=== PATIENT | male | born 1970 | race Caucasian/White ===

== ENCOUNTER 2017-01-10 00:26 | Emergency (ER) | payer MEDICAID ==
[~2017-01-10] VITALS: Ht 162.6 cm; Wt 86.9 kg
[2017-01-10 00:27] VITALS: BP 153/95
== END 2017-01-10 01:03 | disposition home or self-care (01) ==
LOC: ED 00:56
DX: G89.29 Other chronic pain (principal); R10.84 Generalized abdominal pain; J45.909 Unspecified asthma, uncomplicated
CPT/HCPCS: 99283

== ENCOUNTER 2017-01-12 00:26 | Emergency (ER) | payer MEDICAID ==
[~2017-01-12] VITALS: Ht 165.1 cm; Wt 86.0 kg
[2017-01-12 01:36] LABS: HEMATOCRIT 39.9 % (39.2-51.8); HEMOGLOBIN 13.8 g/dL (13.7-18.0)
[2017-01-12 01:48] LABS: ASPARTATE AMINO TRANSFERASE 27 U/L (15-37); BLOOD UREA NITROGEN 18 mg/dL (7-18)
[2017-01-12 02:31] VITALS: BP 148/68
== END 2017-01-12 02:33 | disposition home or self-care (01) ==
LOC: ED 00:41
DX: R55 Syncope and collapse (principal); J45.909 Unspecified asthma, uncomplicated; Z59.0 Homelessness
CPT/HCPCS: 36415; 80053; 83605; 85025; 93005; 99285

== ENCOUNTER 2017-11-06 02:20 | Emergency (ER) | payer MEDICAID ==
[~2017-11-06] VITALS: Ht 165.1 cm; Wt 73.4 kg
[2017-11-06] MEDS ORDERED: LIDOCAINE 2%, 20ML SQ ONE (03:00)
[2017-11-06 03:19] LABS: BASOPHILS # (AUTO) 0.04 x10^3/uL (0-0.1); BASOPHILS % (AUTO) 0 % (0-1); EOSINOPHILS # (AUTO) 0.02 x10^3/uL (0-0.4); EOSINOPHILS % (AUTO) 0 % (1-7); LYMPHOCYTES % (AUTO) 15 % (22-44); MD NO; MEAN CORPUSCULAR HEMOGLOBIN 29.9 pg (27.5-34.5); MEAN CORPUSCULAR HGB CONC 34.7 g/dL (33.2-36.2); MEAN CORPUSCULAR VOLUME 86.2 fL (81-97); MEAN PLATELET VOLUME 8.4 fL (7.4-10.4); MONOCYTES # (AUTO) 0.34 x10^3/uL (0.2-0.8); MONOCYTES % (AUTO) 4 % (2-9); NEUTROPHILS % (AUTO) 81 % (42-75); PLATELET COUNT 217 x10^3/uL (130-400); RED BLOOD COUNT 4.79 x10^6/uL (4.38-5.82); RED CELL DISTRIBUTION WIDTH 12.7 % (9.4-14.8)
[2017-11-06] MEDS ORDERED: LIDOCAINE-MPF 1%, 2ML ONE (03:24)
[2017-11-06 03:28] LABS: ANION GAP 10 mmol/L (5-15); CALCIUM 8.6 mg/dL (8.5-10.1); CHLORIDE 109 mmol/L (98-107)
[2017-11-06 03:32] LABS: ALANINE AMINOTRANSFERASE 51 U/L (12-78); ALKALINE PHOSPHATASE 96 U/L (45-117); BILIRUBIN,TOTAL 2.8 mg/dL (0.2-1.0); CREATININE 1.11 mg/dL (0.7-1.3)
[2017-11-06 03:33] LABS: ACETAMINOPHEN < 2 mcg/mL (10-30); SALICYLATE LEVEL < 1.7 mg/dL (2.8-20.0)
[2017-11-06 09:42] LABS: AMPHETAMINE SCREEN, URINE Positive (Negative); BARBITURATE SCREEN, URINE Negative (Negative); BENZODIAZEPINE SCREEN, URINE Negative (Negative); CANNABINOID SCREEN, URINE Negative (Negative); COCAINE SCREEN, URINE Negative (Negative); METHADONE SCREEN, URINE Negative (Negative); OPIATE SCREEN, URINE Negative (Negative)
[2017-11-06] MEDS ORDERED: POLYETHYLENE GLYCOL 17 GM PACKET PO PRN (11:30)
[2017-11-06] MEDS ORDERED: LORazepam 0.5MG TABLET PO PRN (11:30)
[2017-11-06 11:57] VITALS: BP 116/75
[2017-11-06 12:36] LABS: FREE T4 (FREE THYROXINE) 1.25 ng/dL (0.76-1.46); THYROID STIMULATING HORMONE 1.05 mIU/L (0.358-3.740)
[2017-11-07] MEDS ORDERED: SENNA/DOCUSATE TABLET PO SCH (09:00)
== END 2017-11-06 14:19 ==
LOC: ED 04:51 → UNDOADMOB 09:37 → EDIP 09:37 → ED 14:19
DX: S01.01XA Laceration without foreign body of scalp, initial encounter (principal); F33.9 Major depressive disorder, recurrent, unspecified; R45.851 Suicidal ideations; J45.909 Unspecified asthma, uncomplicated; Z79.899 Other long term (current) drug therapy; X58.XXXA Exposure to other specified factors, initial encounter; Y93.89 Activity, other specified; Y92.89 Other specified places as the place of occurrence of the external cause; Y99.8 Other external cause status
CPT/HCPCS: 12031; 36415; 76700; 80053; 80307; 80329; 84439; 84443; 85025; 99285; G0480

== ENCOUNTER 2018-07-30 01:56 | Emergency (ER) | payer MEDICAID ==
[~2018-07-30] VITALS: Ht 165.1 cm; Wt 68.0 kg
[2018-07-30 01:58] VITALS: BP 131/85
--- NOTE | 2018-07-30 02:00 | NUR ---
TRIAGE NOTE: cracked skin to hands and feet x 1 month
--- NOTE | 2018-07-30 02:05 | NUR ---
Pt also states that he has lice and is not seeking treatment for that.
--- NOTE | 2018-07-30 02:56 | NUR ---
Patient/Caregiver given discharge instructions and they have confirmed that they understand the instructions. Patient ambulatory with steady gait.
== END 2018-07-30 02:57 | disposition home or self-care (01) ==
LOC: ED 02:38
DX: B85.1 Pediculosis due to Pediculus humanus corporis (principal); L85.3 Xerosis cutis
CPT/HCPCS: 99283

== ENCOUNTER 2019-02-14 15:25 | Emergency (ER) | payer MEDICAID ==
[~2019-02-14] VITALS: Ht 165.1 cm; Wt 74.1 kg
[2019-02-14 15:27] VITALS: BP 132/94
--- NOTE | 2019-02-14 18:32 | NUR ---
Patient given discharge instructions and they have confirmed that they understand the instructions. Patient ambulatory with steady gait.
== END 2019-02-14 18:34 | disposition home or self-care (01) ==
LOC: ED 18:28
DX: S39.012A Strain of muscle, fascia and tendon of lower back, initial encounter (principal); J45.909 Unspecified asthma, uncomplicated; X58.XXXA Exposure to other specified factors, initial encounter; Y93.89 Activity, other specified; Y92.89 Other specified places as the place of occurrence of the external cause; Y99.8 Other external cause status
CPT/HCPCS: 72110; 99283

== ENCOUNTER 2019-05-24 13:59 | Emergency (ER) | payer MEDICAID ==
[~2019-05-24] VITALS: Ht 167.6 cm; Wt 74.0 kg
--- NOTE | 2019-05-24 14:13 | NUR ---
NA X 1
[2019-05-24 14:29] VITALS: BP 120/93
--- NOTE | 2019-05-24 14:42 | NUR ---
THIS TECH WAS INFORMED THAT THIS PT NEEDED TO BE DECONTAMINATED DUE TO LICE. SPOKE WITH PT AND HE STATED HE HAD LICE, SCABIES, AND BED BUGS. PT WAS WALKED TO [facility] ROOM AND WAS ASKED TO SHOWER SO THAT HE COULD BE SEEN. PT BECAME ANGRY AND DID NOT WANT TO REMOVE CLOTHING TO [facility]. PT LEFT [facility] ROOM ANGRY AND WALKED AWAY FROM HOSPITAL.
== END 2019-05-24 14:51 | disposition left against medical advice (07) ==
LOC: ED 14:45
DX: B86 Scabies (principal); Z53.21 Procedure and treatment not carried out due to patient leaving prior to being seen by health care provider

== ENCOUNTER 2020-02-26 22:46 | Emergency (ER) | payer MEDICAID ==
[~2020-02-26] VITALS: Ht 165.1 cm; Wt 89.2 kg
--- NOTE | 2020-02-26 22:49 | NUR ---
NIL X1
[2020-02-26 22:51] VITALS: BP 172/116
== END 2020-02-26 23:21 | disposition home or self-care (01) ==
LOC: ED 22:50
DX: J06.9 Acute upper respiratory infection, unspecified (principal); Z20.828 Contact with and (suspected) exposure to other viral communicable diseases; R00.0 Tachycardia, unspecified; I10 Essential (primary) hypertension
CPT/HCPCS: 87635; 93005; 99284

== ENCOUNTER 2020-03-04 10:41 | Emergency (ER) | payer SELFPAY ==
[~2020-03-04] VITALS: Ht 165.1 cm; Wt 90.0 kg
--- NOTE | 2020-03-04 11:34 | NUR ---
BASIN WITH WARM WATER AND BETADINE PLACED AT PT FEET WITH CLEAN TOWELS. PT INSTRUCTED TO CLEAN AND DRY FEET. PT VERBALIZED UNDERSTANDING.
[2020-03-04 11:57] VITALS: BP 171/82
== END 2020-03-04 12:07 | disposition home or self-care (01) ==
LOC: ED 11:43
DX: B35.6 Tinea cruris (principal); B35.3 Tinea pedis; I10 Essential (primary) hypertension
CPT/HCPCS: 99282